=== PATIENT | male | born 1965 | race Caucasian/White ===

== ENCOUNTER 2025-06-24 15:15 | Outpatient (CLI) | payer SELFPAY ==
--- NOTE | 2025-06-24 07:15 | HIP_PTH ---
PATIENT: SHAY PORTILLO LOC: [facility] U#:[id number] AGE/SX: 59/M ROOM: RE06/24/[address]: Dr. Ayaz Mendoza MD : 1965 BED: DIS: 06/24/2025 SPEC #: [id number] RECD: 06/24/25 15:05 STATUS: RAGHAV OPAL #: [id number] BRIELLE: 06/24/25 07:[address]: Ayaz Mendoza DEPT: SURGICAL PATHOLOGY RECD BY: Rafiq Brown Tissues: A - Hip, NOS Procedures: Decalcification bone/plaque Surgery Specimen Level III HEADER OPERATION: Anterior right total hip arthroplasty PRE-OP DIAGNOSIS: Idiopathic avascular necrosis of right femur TISSUE SUBMITTED: A- Right femoral head, bone and soft tissue MICROSCOPIC DIAGNOSIS A. Femoral head, right, total hip arthroplasty: - Trabecular bone with focal necrosis and areas with reactive/degenerative change. MICROSCOPIC DESCRIPTION Slides are reviewed. GROSS DESCRIPTION A. Received in formalin labeled with the patient's name and date of . Designated as right femoral head is a 5.2 x 4.8 x 4.1 cm slightly irregular, ovoid femoral head with attached yadav-pink soft tissue. The articular cartilage is yadav-yellow and granular with prominent eburnation and mild peripheral osteophyte formation. Sectioning reveals yadav-yellow to red medullary bone and a 2.1 x 1.0 cm pale yellow, wedge-shaped area of subchondral bone (suspicious for avascular necrosis). Transformation Coach sections are submitted in 2 cassettes, following decalcification. MO 06/25/2025 CPT:78050,84235
== END 2025-06-24 23:59 | disposition home or self-care (01) ==
LOC: LABSPEC 15:19
PROVIDERS: Referring Provider Specialist; Visit Provider Specialist
DX: M87.051 Idiopathic aseptic necrosis of right femur (principal)
CPT/HCPCS: 88304; 88311